=== PATIENT | female | born 1985 | race Two or more races ===

== ENCOUNTER 2021-07-29 07:56 | Outpatient (CLI) | payer OTHER | END 2021-07-29 07:57 | disposition home or self-care (01) | LOC: LAB 07:56 | PROVIDERS: ATTEND Family Medicine Geriatric Medicine | DX: I10 Essential (primary) hypertension (principal); D64.0 Hereditary sideroblastic anemia; D64.89 Other specified anemias; M25.50 Pain in unspecified joint; N39.0 Urinary tract infection, site not specified; M06.4 Inflammatory polyarthropathy; E03.8 Other specified hypothyroidism; D50.8 Other iron deficiency anemias; D52.0 Dietary folate deficiency anemia; M19.90 Unspecified osteoarthritis, unspecified site; K29.00 Acute gastritis without bleeding; C50.819 Malignant neoplasm of overlapping sites of unspecified female breast; Z11.3 Encounter for screening for infections with a predominantly sexual mode of transmission; D39.10 Neoplasm of uncertain behavior of unspecified ovary; D41.9 Neoplasm of uncertain behavior of unspecified urinary organ; D39.8 Neoplasm of uncertain behavior of other specified female genital organs; E78.49 Other hyperlipidemia; Z79.899 Other long term (current) drug therapy; Z13.228 Encounter for screening for other metabolic disorders; Z01.89 Encounter for other specified special examinations; E63.9 Nutritional deficiency, unspecified; E55.9 Vitamin D deficiency, unspecified; E78.9 Disorder of lipoprotein metabolism, unspecified; R73.9 Hyperglycemia, unspecified; R97.1 Elevated cancer antigen 125 [CA 125]; R97.8 Other abnormal tumor markers; Z12.11 Encounter for screening for malignant neoplasm of colon; D69.9 Hemorrhagic condition, unspecified; M06.9 Rheumatoid arthritis, unspecified; D13.6 Benign neoplasm of pancreas; J30.0 Vasomotor rhinitis; D27.9 Benign neoplasm of unspecified ovary; C25.9 Malignant neoplasm of pancreas, unspecified; J31.0 Chronic rhinitis; J30.9 Allergic rhinitis, unspecified; R51.0 Headache with orthostatic component, not elsewhere classified; R53.82 Chronic fatigue, unspecified ==

== ENCOUNTER 2021-07-29 08:40 | Outpatient (CLI) | payer OTHER | END 2021-07-29 08:56 | disposition home or self-care (01) | LOC: SONOGRAMA 08:40 | PROVIDERS: ATTEND Family Medicine Geriatric Medicine | DX: J32.0 Chronic maxillary sinusitis (principal); J01.00 Acute maxillary sinusitis, unspecified; J45.902 Unspecified asthma with status asthmaticus; R07.1 Chest pain on breathing; R10.84 Generalized abdominal pain; N94.89 Other specified conditions associated with female genital organs and menstrual cycle; R10.2 Pelvic and perineal pain; N20.0 Calculus of kidney; G44.89 Other headache syndrome; R05.8 Other specified cough ==

== ENCOUNTER 2021-11-25 08:08 | Outpatient (CLI) | payer OTHER | END 2021-11-25 08:15 | disposition home or self-care (01) | LOC: LAB 08:08 | DX: Z00.00 Encounter for general adult medical examination without abnormal findings (principal) ==

== ENCOUNTER 2021-12-29 07:01 | Outpatient (CLI) | payer OTHER | END 2021-12-29 07:10 | disposition home or self-care (01) | LOC: LAB 07:01 | DX: E11.65 Type 2 diabetes mellitus with hyperglycemia (principal) ==

== ENCOUNTER 2021-12-29 09:43 | Outpatient (CLI) | payer OTHER | END 2021-12-29 09:53 | disposition home or self-care (01) | LOC: SONOGRAMA 09:43 | DX: M54.2 Cervicalgia (principal); M54.51 Vertebrogenic low back pain; M54.6 Pain in thoracic spine; R10.2 Pelvic and perineal pain ==

== ENCOUNTER 2022-01-03 06:16 | Outpatient (CLI) | payer OTHER | END 2022-01-03 06:17 | disposition home or self-care (01) | LOC: LAB 06:16 | PROVIDERS: ATTEND Family Medicine Geriatric Medicine | DX: Z13.9 Encounter for screening, unspecified (principal); G35 Multiple sclerosis ==

== ENCOUNTER 2022-01-03 07:11 | Outpatient (CLI) | payer OTHER | END 2022-01-03 09:17 | disposition home or self-care (01) | LOC: MRI 07:11 | PROVIDERS: ATTEND Family Medicine Geriatric Medicine | DX: R20.2 Paresthesia of skin (principal) | CPT/HCPCS: 70553 ==

== ENCOUNTER 2022-10-24 14:21 | Outpatient (CLI) | payer OTHER | END 2022-10-24 14:44 | disposition home or self-care (01) | LOC: MRI 14:21 | DX: M47.22 Other spondylosis with radiculopathy, cervical region (principal) | CPT/HCPCS: 72141 ==

== ENCOUNTER 2023-04-28 09:22 | Outpatient (CLI) | payer OTHER | END 2023-04-28 09:24 | disposition home or self-care (01) | LOC: LAB 09:22 | DX: D64.9 Anemia, unspecified (principal); G89.29 Other chronic pain; O03.88 Urinary tract infection following complete or unspecified spontaneous abortion; E55.9 Vitamin D deficiency, unspecified; D50.8 Other iron deficiency anemias; D51.1 Vitamin B12 deficiency anemia due to selective vitamin B12 malabsorption with proteinuria; D51.3 Other dietary vitamin B12 deficiency anemia; D52.0 Dietary folate deficiency anemia; K59.00 Constipation, unspecified; C50.819 Malignant neoplasm of overlapping sites of unspecified female breast; E78.9 Disorder of lipoprotein metabolism, unspecified; D41.9 Neoplasm of uncertain behavior of unspecified urinary organ; D13.9 Benign neoplasm of ill-defined sites within the digestive system; E11.65 Type 2 diabetes mellitus with hyperglycemia; E78.49 Other hyperlipidemia; Z79.01 Long term (current) use of anticoagulants; Z11.3 Encounter for screening for infections with a predominantly sexual mode of transmission; Z13.228 Encounter for screening for other metabolic disorders; Z01.89 Encounter for other specified special examinations; E10.9 Type 1 diabetes mellitus without complications; E03.9 Hypothyroidism, unspecified; D69.9 Hemorrhagic condition, unspecified; M10.9 Gout, unspecified; J30.0 Vasomotor rhinitis; R97.8 Other abnormal tumor markers; N39.0 Urinary tract infection, site not specified; I25.10 Atherosclerotic heart disease of native coronary artery without angina pectoris; I25.119 Atherosclerotic heart disease of native coronary artery with unspecified angina pectoris; I25.700 Atherosclerosis of coronary artery bypass graft(s), unspecified, with unstable angina pectoris; Z13.6 Encounter for screening for cardiovascular disorders; G89.3 Neoplasm related pain (acute) (chronic); R87.810 Cervical high risk human papillomavirus (HPV) DNA test positive; A64 Unspecified sexually transmitted disease; F19.251 Other psychoactive substance dependence with psychoactive substance-induced psychotic disorder with hallucinations; A63.0 Anogenital (venereal) warts; A50 Congenital syphilis; R53.82 Chronic fatigue, unspecified; R07.9 Chest pain, unspecified ==

== ENCOUNTER 2023-05-05 10:50 | Outpatient (CLI) | payer OTHER | END 2023-05-05 10:53 | disposition home or self-care (01) | LOC: LAB 10:50 | DX: D64.9 Anemia, unspecified (principal); G89.29 Other chronic pain; O03.88 Urinary tract infection following complete or unspecified spontaneous abortion; E55.9 Vitamin D deficiency, unspecified; D50.8 Other iron deficiency anemias; D51.1 Vitamin B12 deficiency anemia due to selective vitamin B12 malabsorption with proteinuria; D51.3 Other dietary vitamin B12 deficiency anemia; D52.0 Dietary folate deficiency anemia; K29.00 Acute gastritis without bleeding; C50.819 Malignant neoplasm of overlapping sites of unspecified female breast; E78.9 Disorder of lipoprotein metabolism, unspecified; D41.9 Neoplasm of uncertain behavior of unspecified urinary organ; D13.9 Benign neoplasm of ill-defined sites within the digestive system; E11.65 Type 2 diabetes mellitus with hyperglycemia; E78.49 Other hyperlipidemia; Z79.01 Long term (current) use of anticoagulants; Z11.3 Encounter for screening for infections with a predominantly sexual mode of transmission; Z13.228 Encounter for screening for other metabolic disorders; Z01.89 Encounter for other specified special examinations; Z12.11 Encounter for screening for malignant neoplasm of colon; E10.9 Type 1 diabetes mellitus without complications; E03.9 Hypothyroidism, unspecified; D69.9 Hemorrhagic condition, unspecified; M10.9 Gout, unspecified; J30.0 Vasomotor rhinitis; R97.8 Other abnormal tumor markers; N39.0 Urinary tract infection, site not specified; I25.10 Atherosclerotic heart disease of native coronary artery without angina pectoris; I25.119 Atherosclerotic heart disease of native coronary artery with unspecified angina pectoris; I27.0 Primary pulmonary hypertension; I25.799 Atherosclerosis of other coronary artery bypass graft(s) with unspecified angina pectoris; Z13.6 Encounter for screening for cardiovascular disorders; G89.3 Neoplasm related pain (acute) (chronic) ==

== ENCOUNTER 2023-09-01 18:38 | Emergency (ER) | payer OTHER ==
[~2023-09-01] VITALS: Ht 167.6 cm; Wt 68.0 kg
== END 2023-09-01 22:36 | disposition home or self-care (01) ==
LOC: ER 18:39
DX: A90 Dengue fever [classical dengue] (principal); Z88.6 Allergy status to analgesic agent

== ENCOUNTER 2024-04-21 08:20 | Outpatient (CLI) | payer OTHER ==
[2024-04-21 09:37] LABS: URINE APPEARANCE Clear; URINE BILIRRUBIN Negative (NEGATIVE); URINE BLOOD Negative; URINE COLOR Yellow; URINE GLUCOSE Negative (NEGATIVE); URINE KETONE Negative (NEGATIVE); URINE LEUKOCYTE Negative; URINE NITRATE Negative; URINE PROTEIN Negative (NEGATIVE); URINE UROBILINOGEN 0.2 E.U./dl
[2024-04-21 09:41] LABS: URINE BACTERIA 138.6 uL (0.0-1933); URINE EPITHELIAL CELLS 1.6 uL (0.0-38.8); URINE WBC 6.3 uL (0.0-23.2)
[2024-04-21 09:43] LABS: HEMATOCRIT 37.5 % (36.0-45.00); HEMOGLOBIN 12.4 g/dL (12.0-15.00); MEAN CELL VOLUME 97.4 fL (80.00-100.00); MEAN CORPUSCULAR HEMOGLOBIN 32.2 pg (27.00-32.0); PLATELET COUNT 151 K/uL (150-450); RED BLOOD COUNT 3.85 M/uL (4.00-6.00); RED CELL DISTRIBUTION WIDTH 12.7 % (11.5-14.5)
[2024-04-21 09:48] LABS: ERYTHROCYTE SEDIMENTATION RATE 14 mm/hr
[2024-04-21 10:04] LABS: URINE CAST 0.15 uL (0.0-1.40); URINE RBC 1.8 uL (0.0-20.8)
[2024-04-21 10:12] LABS: INR 1.09; PARTIAL THROMBOPLASTIN TIME 33.6 SECONDS (22.0-34.0); PROTHROMBIN TIME 11.8 SECONDS (9.0-11.5)
[2024-04-21 10:19] LABS: ALKALINE PHOSPHATASE 57 U/L (50-136); ALT/SGPT 17 U/L (12-78); ANION GAP 14 (10.0-20.0); AST/SGOT 11 U/L (15-37); BILIRUBIN TOTAL 0.44 mg/dL (0.3-1.2); BLOOD UREA NITROGEN 7 mg/dL (7-18); BUN CREA RATIO 10 (7.0-25.0); CARBON DIOXIDE 27 mEq/L (21-32); CHLORIDE 105 mmol/L (98-107); CHOL HDL RATIO 2.6 (0-5.0); CHOLESTEROL 166 mg/dL (0-200); CREATININE SERUM 0.73 mg/dL (0.55-1.02); GFR 89.22; GLOBULINA 3.7 G/DL (2.4-3.5); GLUCOSE FASTING 86 mg/dL (65-100); HDL 64 mg/dl (40-60); LDL 81 mg/dl (0-130); OSMOLALITY SERUM 280 MOSM/KG (275-295); POTASSIUM 4.17 mEq/L (3.5-5.1); SODIUM 142 mmol/L (136-145); T4 TOTAL 7.03 UG/DL (4.8-13.9); TOTAL PROTEIN 7.7 gm/dL (6.4-8.2); TRIGLYCERIDES 103 mg/dL (0-150); TSH 0.925 uIU/mL (0.358-3.74); VLDL 20 (0-39)
[2024-04-21 10:27] LABS: C-REACTIVE PROTEIN < 0.29 MG/DL (0.00-0.29)
[2024-04-21 11:28] LABS: FOLIC ACID > 20.00 ng/ml (4.78-20); T3 TOTAL 0.993 ng/ml (0.846-2.02); VITAMIN D3 25 HYDROXY 36.04 ng/ml (30-120)
[2024-04-21 13:18] LABS: ob NEGATIVE (NEGATIVE)
[2024-04-21 15:18] LABS: RF NEGATIVE (NEGATIVE)
[2024-04-21 15:51] LABS: RAPID PLASMA REAGIN NONREACTIVE BY RPR (NONREACTIVE)
[2024-04-23 07:06] LABS: hav igm Negative (Negative); hcv Non Reactive (Non Reactive); hep b c Negative (Negative); hep b s ag Negative (Negative)
[2024-04-23 09:10] LABS: HOMOCYSTEINE 6.4 umol/L (0.0-14.5); HSV I IGG TYPE SPECIFIC < 0.91 index (0.00-0.90)
[2024-04-23 11:07] LABS: FOLLICLE STIMULATING HORMONE 1.4 mIU/mL (.); PROGESTERONA 12.6 ng/mL (.); PROLACTIN 11.2 ng/mL (4.8-33.4)
[2024-04-23 21:04] LABS: chla t Negative (Negative); neiss Negative (Negative)
[2024-04-25 13:06] LABS: ESTROGENO 448 pg/mL (.)
== END 2024-04-21 08:43 | disposition home or self-care (01) ==
LOC: LAB 08:20
PROVIDERS: ATTEND Family Medicine Geriatric Medicine
DX: D64.9 Anemia, unspecified (principal); G89.29 Other chronic pain; O03.88 Urinary tract infection following complete or unspecified spontaneous abortion; E55.9 Vitamin D deficiency, unspecified; D50.8 Other iron deficiency anemias; D51.1 Vitamin B12 deficiency anemia due to selective vitamin B12 malabsorption with proteinuria; D51.3 Other dietary vitamin B12 deficiency anemia; D52.0 Dietary folate deficiency anemia; K29.00 Acute gastritis without bleeding; E78.9 Disorder of lipoprotein metabolism, unspecified; E11.65 Type 2 diabetes mellitus with hyperglycemia; Z11.3 Encounter for screening for infections with a predominantly sexual mode of transmission; Z12.11 Encounter for screening for malignant neoplasm of colon; E10.9 Type 1 diabetes mellitus without complications; E03.9 Hypothyroidism, unspecified; R73.9 Hyperglycemia, unspecified; D69.9 Hemorrhagic condition, unspecified; M10.9 Gout, unspecified; J30.0 Vasomotor rhinitis; R97.8 Other abnormal tumor markers; A64 Unspecified sexually transmitted disease; F19.251 Other psychoactive substance dependence with psychoactive substance-induced psychotic disorder with hallucinations; A63.0 Anogenital (venereal) warts; A50 Congenital syphilis

== ENCOUNTER 2025-01-31 08:59 | Outpatient (CLI) | payer OTHER ==
[2025-01-31 10:49] LABS: URINE APPEARANCE Clear; URINE BILIRRUBIN Negative (NEGATIVE); URINE BLOOD Negative; URINE COLOR Yellow; URINE GLUCOSE Negative (NEGATIVE); URINE KETONE Negative (NEGATIVE); URINE LEUKOCYTE Negative; URINE NITRATE Negative; URINE PROTEIN Negative (NEGATIVE); URINE UROBILINOGEN 0.2 E.U./dl
[2025-01-31 10:50] LABS: URINE BACTERIA 263.1 uL (0.0-1933); URINE EPITHELIAL CELLS 7.2 uL (0.0-38.8); URINE RBC 2.9 uL (0.0-20.8); URINE WBC 2.2 uL (0.0-23.2)
[2025-01-31 10:53] LABS: BASO % 0.8 % (0.1-1.2); EOS % 2.1 % (0.7-7.0); HEMATOCRIT 38.1 % (34.1-44.9); HEMOGLOBIN 12.5 g/dL (11.2-15.7); LYMPH # 1.11 (1.18-3.74); LYMPH % 23.4 % (19.3-53.1); MEAN CORPUSCULAR HEMOGLOBIN 32.1 pg (25.6-32.2); MONO # 0.38 (0.24-0.82); NEUT # 3.11 (1.56-6.13); NEUT % 65.5 % (34.0-71.1); PLATELET COUNT 149 K/uL (163-369); RED CELL DISTRIBUTION WIDTH 12.6 % (11.6-14.4)
[2025-01-31 10:58] LABS: ERYTHROCYTE SEDIMENTATION RATE 15 mm/hr (0-20)
[2025-01-31 11:16] LABS: INR 1.08; PROTHROMBIN TIME 11.7 SECONDS (9.0-11.5)
[2025-01-31 11:40] LABS: ALBUMIN 3.8 gm/dL (3.4-5.0); ALKALINE PHOSPHATASE 59 U/L (50-136); ALT/SGPT 18 U/L (12-78); ANION GAP 10 (10.0-20.0); AST/SGOT 15 U/L (15-37); BILIRUBIN TOTAL 0.42 mg/dL (0.3-1.2); BLOOD UREA NITROGEN 10 mg/dL (7-18); BUN CREA RATIO 17 (7.0-25.0); CALCIUM 9.1 mg/dL (8.5-10.1); CARBON DIOXIDE 28 mEq/L (21-32); CHLORIDE 109 mmol/L (98-107); CHOL HDL RATIO 2.3 (0-5.0); CHOLESTEROL 160 mg/dL (0-200); CREATININE SERUM 0.58 mg/dL (0.55-1.02); GFR 115.73; GLOBULINA 3.6 G/DL (2.4-3.5); GLUCOSE FASTING 85 mg/dL (65-100); HDL 69 mg/dl (40-60); LDL 76 mg/dl (0-130); OSMOLALITY SERUM 283 MOSM/KG (275-295); POTASSIUM 4.15 mEq/L (3.5-5.1); SODIUM 143 mmol/L (136-145); TOTAL PROTEIN 7.4 gm/dL (6.4-8.2); TRIGLYCERIDES 76 mg/dL (0-150); VLDL 15 (0-39)
[2025-01-31 11:41] LABS: C-REACTIVE PROTEIN < 0.29 MG/DL (0.00-0.29)
[2025-02-02 10:19] LABS: FOLIC ACID > 20.00 ng/ml (4.78-20); VITAMIN D3 25 HYDROXY 34.14 ng/ml (30-120)
== END 2025-01-31 09:27 | disposition home or self-care (01) ==
LOC: LAB 08:59
PROVIDERS: ATTEND Family Medicine Geriatric Medicine
DX: D64.9 Anemia, unspecified (principal); D51.3 Other dietary vitamin B12 deficiency anemia; G89.29 Other chronic pain; E55.9 Vitamin D deficiency, unspecified; D50.8 Other iron deficiency anemias; D51.1 Vitamin B12 deficiency anemia due to selective vitamin B12 malabsorption with proteinuria; D52.0 Dietary folate deficiency anemia; K29.00 Acute gastritis without bleeding; E78.9 Disorder of lipoprotein metabolism, unspecified; D41.9 Neoplasm of uncertain behavior of unspecified urinary organ; E11.65 Type 2 diabetes mellitus with hyperglycemia; Z11.3 Encounter for screening for infections with a predominantly sexual mode of transmission; Z79.01 Long term (current) use of anticoagulants; Z13.228 Encounter for screening for other metabolic disorders; Z01.89 Encounter for other specified special examinations; Z12.11 Encounter for screening for malignant neoplasm of colon; E03.9 Hypothyroidism, unspecified; Z13.6 Encounter for screening for cardiovascular disorders; I25.799 Atherosclerosis of other coronary artery bypass graft(s) with unspecified angina pectoris; I25.119 Atherosclerotic heart disease of native coronary artery with unspecified angina pectoris; I25.10 Atherosclerotic heart disease of native coronary artery without angina pectoris; N39.0 Urinary tract infection, site not specified; R97.8 Other abnormal tumor markers; J30.0 Vasomotor rhinitis; M10.9 Gout, unspecified; D69.9 Hemorrhagic condition, unspecified; M19.90 Unspecified osteoarthritis, unspecified site

== ENCOUNTER 2025-02-17 11:18 | Outpatient (CLI) | payer OTHER | END 2025-02-17 11:23 | disposition home or self-care (01) | LOC: MAMO-SONO 11:18 | PROVIDERS: ATTEND Family Medicine Geriatric Medicine | DX: N60.12 Diffuse cystic mastopathy of left breast (principal); N60.11 Diffuse cystic mastopathy of right breast; N64.4 Mastodynia; N63.0 Unspecified lump in unspecified breast; Z12.31 Encounter for screening mammogram for malignant neoplasm of breast ==